=== PATIENT | female | born 1965 | race Two or more races ===

== ENCOUNTER 2017-02-10 14:24 | Emergency (ER) | payer MEDICAID ==
[~2017-02-10] VITALS: Ht 160 cm; Wt 63.5 kg
[2017-02-10 15:02] VITALS: BP 117/45
== END 2017-02-10 15:45 | disposition home or self-care (01) ==
LOC: ER 14:30
DX: N76.0 Acute vaginitis (principal)
CPT/HCPCS: 81002; 82962